=== PATIENT | female | born 1955 | race African-American/Black ===

== ENCOUNTER 2016-09-17 15:54 | Emergency (ER) | payer OTHER ==
[~2016-09-17] VITALS: Ht 157.5 cm; Wt 50.0 kg
[~2016-09-17 15:54] MED LIST: DSS100 PO; HYDR-305 PO
[2016-09-17] MEDS ORDERED: KETOROLAC TROMETHAMINE 60 MG/2 ML VIAL IM ONE (19:45)
[2016-09-17 20:36] VITALS: BP 134/66
== END 2016-09-17 20:47 | disposition home or self-care (01) ==
LOC: EMS 15:55
DX: M76.31 Iliotibial band syndrome, right leg (principal); M25.551 Pain in right hip; I10 Essential (primary) hypertension; F17.210 Nicotine dependence, cigarettes, uncomplicated; Z88.5 Allergy status to narcotic agent
CPT/HCPCS: 96372; 99283; J1885